=== PATIENT | female | born 1940 | race Caucasian/White ===

== ENCOUNTER 2018-07-16 07:08 | Inpatient (IN) ==
[2018-07-16] MEDS ORDERED: SODIUM CHLORIDE 0.9% 1,000 ML IV STA ×2 (07:42→09:06)
[2018-07-16] MEDS ORDERED: DILTIAZEM 25 MG/5 ML VIAL IV ONE (07:56)
[2018-07-16] MEDS ORDERED: DILTIAZEM 50 MG/10 ML VIAL IV STA (08:01)
[2018-07-16 08:35] LABS: Amorphous Crystals,Urine Occasional /HPF (Few); Apearance,Urine Slightly Hazy (Clear); Bilirubin,Urine Negative (Negative); Blood, Urine Small mg/dL (Negative); Glucose,Urine (UA) Negative (Negative); Hyaline Casts,Urine 7 /LPF (0-3); Ketones,Urine 5 mg/dL (Negative); Mucus,Urine Occasional /LPF (Occasional); Nitrite,Urine Negative (Negative); Protein,Urine Negative; RBC,Urine 1 /HPF (0-4); Squamous Epithelial Cell,Urine Occasional /HPF (0-10); Urine Color Yellow (Yellow); Urine Specific Gravity 1.018 (1.001-1.035); Urine Urobilinogen < 2.0 EU/DL (0.2-1.0); WBC,Urine 3 /HPF (0-6)
[2018-07-16 08:52] LABS: Albumin 2.2 G/DL (3.4-5.0); Bilirubin,Total 0.4 MG/DL (0.2-1.0); Calcium 8.7 MG/DL (8.5-10.1); Osmolality,Calculated 297.7 MOS/KG (273-304); Total Protein 7.3 G/DL (6.4-8.3)
[2018-07-16] MEDS ORDERED: POTASSIUM CHLORIDE 20 MEQ TABLET PO STA (09:18)
[2018-07-16 09:20] LABS: Basophils # 0.1 10*3/uL (0.0-0.2); Basophils % 0.6 % (0.0-0.8); Eosinophils # 0.1 10*3/uL (0.0-0.87); Eosinophils % 0.6 % (0.00-10.9); Hematocrit 39.9 VOL% (35.7-47.0); Hemoglobin 13.4 GM/DL (12.0-16.0); Immature Granulocytes % 4.4 %; Immature Granulocytes Absolute 0.64 #; Lymphocytes # 1.9 10*3/uL (1.4-4.0); Lymphocytes % 13.3 % (21.3-54.2); Mean Corpuscular HGB Conc 33.6 GM/DL (32-36); Mean Corpuscular Hemoglobin 31 PG (27-34); Mean Corpuscular Volume 91.9 FL (87-102); Mean Platelet Volume 14.4 FL (9.6-12.0); Monocytes # 0.9 10*3/uL (0.11-0.8); Monocytes % 5.9 % (1.7-12.7); Neutrophils # 10.9 10*3/uL (1.4-7.4); Neutrophils % 75.2 % (38.7-73.9); Platelet Count 119 T/CUMM (130-400); Red Blood Count 4.34 MC/CUMM (3.8-5.5); Red Cell Distribution Width 14.5 % (9.3-17.3); White Blood Count 14.4 T/CUMM (4-12)
[2018-07-16 09:29] LABS: Band Neutrophils 1 % (0-10); Hypochromasia Slight; Lymphocytes 11 % (20-55); Platelet Estimate Decreased; Segmented Neutrophils 80 % (50-85); Total Cells Counted 100
[2018-07-16] MEDS ORDERED: DIGOXIN 0.5 MG/2 ML AMP IV ONE ×2 (11:22→15:41)
[2018-07-16] MEDS ORDERED: ONDANSETRON 4 MG/2 ML VIAL IV PRN (11:56)
[2018-07-16] MEDS ORDERED: ENOXAPARIN 30 MG/0.3 ML SYRINGE SUBCUT SCH (11:56)
[2018-07-16] MEDS: SODIUM CHLORIDE 0.9% 1,000 ML IV SCH (12:27)
[2018-07-16] MEDS: dilTIAZem Drip 125 MG/125 ML PREMIX IV SCH (12:27)
[2018-07-16] MEDS: POTASSIUM CHLORIDE 20 MEQ TABLET PO SCH ×4 (12:28→21:42)
[2018-07-16] MEDS: APIXABAN 2.5 MG TABLET PO SCH ×2 (12:28→21:42)
[2018-07-16] MEDS: PANTOPRAZOLE 40 MG TABLET PO SCH (12:29)
[2018-07-16 13:17] LABS: Apearance,Urine Slightly Hazy (Clear); Bacteria,Urine Occasional /HPF (Few); Bilirubin,Urine Negative (Negative); Blood, Urine Small mg/dL (Negative); Glucose,Urine (UA) Negative (Negative); Ketones,Urine 5 mg/dL (Negative); Mucus,Urine Occasional /LPF (Occasional); Nitrite,Urine Negative (Negative); Protein,Urine 30 MG/DL; RBC,Urine <1 /HPF (0-4); Squamous Epithelial Cell,Urine Occasional /HPF (0-10); Urine Color Yellow (Yellow); Urine Specific Gravity 1.018 (1.001-1.035); Urine Urobilinogen < 2.0 EU/DL (0.2-1.0)
[2018-07-16 13:18] LABS: WBC,Urine 6 /HPF (0-6)
[2018-07-16] MEDS ORDERED: metroNIDAZOLE 250 MG TABLET PO ONE (14:44)
[2018-07-16] MEDS ORDERED: metroNIDAZOLE 250 MG TABLET PO SCH (15:00)
[2018-07-17] MEDS: SODIUM CHLORIDE 0.9% 1,000 ML IV SCH (02:00)
[2018-07-17 06:31] LABS: Risk Ratio 3.75; VLDL CHOLESTEROL 19.2 MG/DL
[2018-07-17 06:41] LABS: Basophils # 0.1 10*3/uL (0.0-0.2); Basophils % 0.5 % (0.0-0.8); Eosinophils # 0.1 10*3/uL (0.0-0.87); Eosinophils % 0.5 % (0.00-10.9); Hematocrit 43.7 VOL% (35.7-47.0); Hemoglobin 13.8 GM/DL (12.0-16.0); Immature Granulocytes % 3.8 %; Immature Granulocytes Absolute 0.49 #; Lymphocytes # 2.1 10*3/uL (1.4-4.0); Lymphocytes % 16.1 % (21.3-54.2); Mean Corpuscular HGB Conc 31.6 GM/DL (32-36); Mean Corpuscular Hemoglobin 31 PG (27-34); Mean Corpuscular Volume 96.9 FL (87-102); Monocytes # 0.4 10*3/uL (0.11-0.8); Monocytes % 3.4 % (1.7-12.7); Neutrophils # 9.6 10*3/uL (1.4-7.4); Neutrophils % 75.7 % (38.7-73.9); Platelet Count 119 T/CUMM (130-400); Red Blood Count 4.51 MC/CUMM (3.8-5.5); Red Cell Distribution Width 15.1 % (9.3-17.3); White Blood Count 12.7 T/CUMM (4-12)
[2018-07-17 06:50] LABS: Blood Urea Nitrogen 55 MG/DL (7-18); Calcium 8.4 MG/DL (8.5-10.1); Glucose 107 MG/DL (74-106); Osmolality,Calculated 297.1 MOS/KG (273-304); Potassium 4.3 MMOL/L (3.5-5.1); Sodium 142 MMOL/L (136-145)
[2018-07-17 06:56] LABS: Band Neutrophils 4 % (0-10); Hypochromasia 1+; Lymphocytes 7 % (20-55); Nucleated Red Blood Cells 1 (0-5); Platelet Estimate Decreased; Segmented Neutrophils 86 % (50-85); Total Cells Counted 100
[2018-07-17] MEDS: DILTIAZEM 30 MG TABLET PO SCH ×4 (09:07→21:04)
[2018-07-17] MEDS: PANTOPRAZOLE 40 MG TABLET PO SCH (09:07)
[2018-07-17] MEDS: APIXABAN 2.5 MG TABLET PO SCH ×2 (09:07→21:04)
[2018-07-17] MEDS: dilTIAZem Drip 125 MG/125 ML PREMIX IV SCH ×2 (11:23)
[2018-07-17] MEDS: ACETAMINOPHEN 325 MG TABLET PO PRN (11:54)
[2018-07-18] MEDS ORDERED: KETOROLAC 30 MG/1 ML VIAL IV ONE (02:04)
[2018-07-18 04:18] LABS: Basophils % 0.3 % (0.0-0.8); Eosinophils # 0.1 10*3/uL (0.0-0.87); Eosinophils % 0.9 % (0.00-10.9); Hematocrit 35.6 VOL% (35.7-47.0); Hemoglobin 11.5 GM/DL (12.0-16.0); Immature Granulocytes % 2.3 %; Immature Granulocytes Absolute 0.32 #; Lymphocytes # 1.5 10*3/uL (1.4-4.0); Lymphocytes % 10.3 % (21.3-54.2); Mean Corpuscular HGB Conc 32.3 GM/DL (32-36); Mean Corpuscular Hemoglobin 31 PG (27-34); Mean Corpuscular Volume 95.2 FL (87-102); Mean Platelet Volume 13.2 FL (9.6-12.0); Monocytes # 0.7 10*3/uL (0.11-0.8); Monocytes % 4.8 % (1.7-12.7); Neutrophils # 11.5 10*3/uL (1.4-7.4); Neutrophils % 81.4 % (38.7-73.9); Platelet Count 136 T/CUMM (130-400); Red Blood Count 3.74 MC/CUMM (3.8-5.5); Red Cell Distribution Width 15.4 % (9.3-17.3); White Blood Count 14.1 T/CUMM (4-12)
[2018-07-18 04:49] LABS: Calcium 8.5 MG/DL (8.5-10.1); Osmolality,Calculated 292.4 MOS/KG (273-304); Potassium 4.1 MMOL/L (3.5-5.1)
[2018-07-18 05:14] LABS: Platelet Estimate Decreased; Polychromasia Few
[2018-07-18] MEDS ORDERED: DIGOXIN 0.25 MG TABLET PO ONE (07:04)
[2018-07-18] MEDS: METOPROLOL TARTRATE 25 MG TABLET PO SCH ×2 (08:26→22:06)
[2018-07-18] MEDS: DILTIAZEM 30 MG TABLET PO SCH ×4 (08:26→22:06)
[2018-07-18] MEDS: APIXABAN 2.5 MG TABLET PO SCH (08:27)
[2018-07-18] MEDS: PANTOPRAZOLE 40 MG TABLET PO SCH (08:27)
[2018-07-18] MEDS ORDERED: AMIODARONE INJ 150 MG in DEXTROSE 5% 100 ML IV ONE (10:23)
[2018-07-18] MEDS ORDERED: AMIODARONE INJ 450 MG in DEXTROSE 5% 241 ML IV SCH (10:30)
[2018-07-18] MEDS: ENOXAPARIN 100 MG/ML SYRINGE SUBCUT SCH ×2 (11:36→22:05)
[2018-07-18] MEDS: AMPICILLIN 500 MG CAPSULE PO SCH ×4 (13:13→22:09)
[2018-07-18] MEDS: NYSTATIN 500,000 UNIT/5 ML UDCUP SWISH/SWAL SCH ×3 (13:13→22:06)
[2018-07-18] MEDS: DIGOXIN 0.25 MG TABLET PO SCH (13:13)
[2018-07-18] MEDS: AMIODARONE INJ 450 MG in DEXTROSE 5% 241 ML IV SCH (22:07)
[2018-07-19 05:19] LABS: Osmolality,Calculated 288.7 MOS/KG (273-304); Potassium 4.8 MMOL/L (3.5-5.1)
[2018-07-19] MEDS: PANTOPRAZOLE 40 MG TABLET PO SCH (08:58)
[2018-07-19] MEDS: DILTIAZEM 30 MG TABLET PO SCH (08:58)
[2018-07-19] MEDS: AMIODARONE 200 MG TABLET PO SCH (08:58)
[2018-07-19] MEDS: NYSTATIN 500,000 UNIT/5 ML UDCUP SWISH/SWAL SCH ×2 (08:58→09:06)
[2018-07-19] MEDS: diphenhydrAMINE CAP 25 MG CAPSULE PO PRN (08:58)
[2018-07-19] MEDS: METOPROLOL TARTRATE 25 MG TABLET PO SCH ×2 (08:59→21:20)
[2018-07-19] MEDS: AMPICILLIN 500 MG CAPSULE PO SCH (09:04)
[2018-07-19] MEDS: AMIODARONE INJ 450 MG in DEXTROSE 5% 241 ML IV SCH (09:09)
[2018-07-19] MEDS: ENOXAPARIN 100 MG/ML SYRINGE SUBCUT SCH ×2 (10:33→21:40)
[2018-07-19] MEDS: LEVOFLOXACIN 500 MG TABLET PO SCH (11:31)
[2018-07-19] MEDS: DIGOXIN 0.25 MG TABLET PO SCH (13:31)
[2018-07-19] MEDS: DILTIAZEM 60 MG TABLET PO SCH ×3 (13:31→21:18)
[2018-07-19] MEDS: GENTAMICIN INJ 80 MG in PREMIX 1 EACH IV SCH (14:57)
[2018-07-20] MEDS ORDERED: methylPREDNISolone SOD SUC 125 MG/2 ML VIAL IV ONE (00:10)
[2018-07-20] MEDS ORDERED: FAMOTIDINE 20 MG/2 ML VIAL IV ONE (00:11)
[2018-07-20] MEDS: diphenhydrAMINE CAP 25 MG CAPSULE PO PRN ×2 (00:26→22:03)
[2018-07-20] MEDS: GENTAMICIN INJ 80 MG in PREMIX 1 EACH IV SCH (00:50)
[2018-07-20 04:48] LABS: Basophils # 0.1 10*3/uL (0.0-0.2); Basophils % 0.4 % (0.0-0.8); Eosinophils % 0.2 % (0.00-10.9); Hematocrit 38.8 VOL% (35.7-47.0); Hemoglobin 12.1 GM/DL (12.0-16.0); Immature Granulocytes % 1.1 %; Immature Granulocytes Absolute 0.12 #; Lymphocytes # 1.3 10*3/uL (1.4-4.0); Lymphocytes % 11.8 % (21.3-54.2); Mean Corpuscular HGB Conc 31.2 GM/DL (32-36); Mean Corpuscular Hemoglobin 30 PG (27-34); Mean Corpuscular Volume 97.2 FL (87-102); Mean Platelet Volume 13.8 FL (9.6-12.0); Monocytes # 0.3 10*3/uL (0.11-0.8); Monocytes % 2.3 % (1.7-12.7); Neutrophils # 9.4 10*3/uL (1.4-7.4); Neutrophils % 84.2 % (38.7-73.9); Platelet Count 155 T/CUMM (130-400); Red Blood Count 3.99 MC/CUMM (3.8-5.5); Red Cell Distribution Width 15.5 % (9.3-17.3); White Blood Count 11.2 T/CUMM (4-12)
[2018-07-20 05:03] LABS: Calcium 8.5 MG/DL (8.5-10.1); Osmolality,Calculated 289.4 MOS/KG (273-304); Potassium 4.7 MMOL/L (3.5-5.1)
[2018-07-20 05:21] LABS: Lymphocytes 5 % (20-55); Segmented Neutrophils 93 % (50-85); Total Cells Counted 100
[2018-07-20 05:22] LABS: Hypochromasia 1+; Platelet Estimate Adequate
[2018-07-20] MEDS: DILTIAZEM 60 MG TABLET PO SCH ×4 (09:14→22:01)
[2018-07-20] MEDS: ENOXAPARIN 100 MG/ML SYRINGE SUBCUT SCH ×3 (09:14→22:02)
[2018-07-20] MEDS: AMIODARONE 200 MG TABLET PO SCH (09:15)
[2018-07-20] MEDS: METOPROLOL TARTRATE 25 MG TABLET PO SCH ×2 (09:15→22:02)
[2018-07-20] MEDS: PANTOPRAZOLE 40 MG TABLET PO SCH (09:15)
[2018-07-20] MEDS: LEVOFLOXACIN 500 MG TABLET PO SCH (10:56)
[2018-07-20] MEDS: DIGOXIN 0.25 MG TABLET PO SCH (12:15)
[2018-07-20] MEDS: BENZONATATE 100 MG CAPSULE PO SCH ×2 (14:54→22:01)
[2018-07-20] MEDS: OLANZapine 2.5 MG TABLET PO SCH (17:39)
[2018-07-21 04:04] LABS: Basophils % 0.1 % (0.0-0.8); Hematocrit 35.3 VOL% (35.7-47.0); Hemoglobin 11.3 GM/DL (12.0-16.0); Immature Granulocytes % 0.9 %; Immature Granulocytes Absolute 0.08 #; Lymphocytes # 1.9 10*3/uL (1.4-4.0); Lymphocytes % 20.8 % (21.3-54.2); Mean Corpuscular Hemoglobin 31 PG (27-34); Mean Corpuscular Volume 95.4 FL (87-102); Mean Platelet Volume 11.6 FL (9.6-12.0); Monocytes # 0.4 10*3/uL (0.11-0.8); Monocytes % 4.7 % (1.7-12.7); Neutrophils # 6.6 10*3/uL (1.4-7.4); Neutrophils % 73.5 % (38.7-73.9); Platelet Count 222 T/CUMM (130-400); Red Cell Distribution Width 15.2 % (9.3-17.3)
[2018-07-21 04:20] LABS: Calcium 8.8 MG/DL (8.5-10.1); Potassium 4.5 MMOL/L (3.5-5.1)
[2018-07-21 04:25] LABS: Platelet Estimate Normal
[2018-07-21 04:26] LABS: Hypochromasia 1+; Polychromasia Few
[2018-07-21] MEDS ORDERED: SODIUM CHLORIDE 0.9% 1,000 ML IV SCH ×3 (06:00→13:00)
[2018-07-21] MEDS ORDERED: POTASSIUM CHLORIDE RIDER 10 MEQ in PREMIX 1 EACH IV PRN (06:00)
[2018-07-21] MEDS ORDERED: MAGNESIUM SULF RIDER 2 GM in PREMIX 1 EACH IV PRN (06:00)
[2018-07-21] MEDS ORDERED: DIAZEPAM 5 MG TABLET PO ONE (06:00)
[2018-07-21] MEDS ORDERED: diphenhydrAMINE CAP 25 MG CAPSULE PO ONE (06:00)
[2018-07-21] MEDS: LEVOFLOXACIN 500 MG TABLET PO SCH ×2 (09:02→10:05)
[2018-07-21] MEDS: DILTIAZEM 60 MG TABLET PO SCH ×5 (09:02→22:10)
[2018-07-21] MEDS: OLANZapine 2.5 MG TABLET PO SCH (09:02)
[2018-07-21] MEDS: METOPROLOL TARTRATE 25 MG TABLET PO SCH ×3 (09:02→22:10)
[2018-07-21] MEDS: AMIODARONE 200 MG TABLET PO SCH (09:03)
[2018-07-21] MEDS: PANTOPRAZOLE 40 MG TABLET PO SCH (09:03)
[2018-07-21] MEDS: BENZONATATE 100 MG CAPSULE PO SCH ×4 (09:03→22:09)
[2018-07-21] MEDS ORDERED: MIDAZOLAM 2 MG/2 ML VIAL ONE (11:59)
[2018-07-21] MEDS ORDERED: LIDOCAINE 1% 20 ML VIAL ONE ×2 (11:59→12:09)
[2018-07-21] MEDS ORDERED: PROMETHAZINE 25 MG/1 ML VIAL ONE (11:59)
[2018-07-21] MEDS: DIGOXIN 0.25 MG TABLET PO SCH (14:00)
[2018-07-21] MEDS: ATORVASTATIN 10 MG TABLET PO SCH ×2 (22:09)
[2018-07-22 05:03] LABS: Basophils % 0.1 % (0.0-0.8); Eosinophils % 0.3 % (0.00-10.9); Hematocrit 33.4 VOL% (35.7-47.0); Hemoglobin 10.6 GM/DL (12.0-16.0); Immature Granulocytes % 0.6 %; Immature Granulocytes Absolute 0.05 #; Lymphocytes # 1.2 10*3/uL (1.4-4.0); Lymphocytes % 15.2 % (21.3-54.2); Mean Corpuscular HGB Conc 31.7 GM/DL (32-36); Mean Corpuscular Hemoglobin 31 PG (27-34); Mean Corpuscular Volume 96.3 FL (87-102); Mean Platelet Volume 12.3 FL (9.6-12.0); Monocytes # 0.4 10*3/uL (0.11-0.8); Monocytes % 4.6 % (1.7-12.7); Neutrophils # 6.1 10*3/uL (1.4-7.4); Neutrophils % 79.2 % (38.7-73.9); Platelet Count 190 T/CUMM (130-400); Red Blood Count 3.47 MC/CUMM (3.8-5.5); Red Cell Distribution Width 15.5 % (9.3-17.3); White Blood Count 7.8 T/CUMM (4-12)
[2018-07-22 05:12] LABS: Osmolality,Calculated 291.7 MOS/KG (273-304); Potassium 4.2 MMOL/L (3.5-5.1)
[2018-07-22 05:14] LABS: Calcium 8.2 MG/DL (8.5-10.1); Osmolality,Calculated 290.8 MOS/KG (273-304); Potassium 4.1 MMOL/L (3.5-5.1)
[2018-07-22] MEDS: diphenhydrAMINE CAP 25 MG CAPSULE PO PRN ×2 (05:15→21:05)
[2018-07-22] MEDS: ACETAMINOPHEN 325 MG TABLET PO PRN (05:15)
[2018-07-22 05:35] LABS: Lymphocytes 4 % (20-55); Segmented Neutrophils 95 % (50-85); Total Cells Counted 100
[2018-07-22 05:36] LABS: Hypochromasia Slight; Platelet Estimate Adequate
[2018-07-22] MEDS: ENOXAPARIN 40 MG/0.4 ML SYRINGE SUBCUT SCH (06:53)
[2018-07-22] MEDS: METOPROLOL TARTRATE 25 MG TABLET PO SCH ×2 (08:25→21:07)
[2018-07-22] MEDS: OLANZapine 2.5 MG TABLET PO SCH (08:25)
[2018-07-22] MEDS: DILTIAZEM 60 MG TABLET PO SCH ×4 (08:25→21:06)
[2018-07-22] MEDS: AMIODARONE 200 MG TABLET PO SCH (08:25)
[2018-07-22] MEDS: BENZONATATE 100 MG CAPSULE PO SCH ×3 (08:25→21:06)
[2018-07-22] MEDS: ASPIRIN EC 81 MG TABLET PO SCH (08:25)
[2018-07-22] MEDS: PANTOPRAZOLE 40 MG TABLET PO SCH (08:26)
[2018-07-22] MEDS: LEVOFLOXACIN 500 MG TABLET PO SCH ×2 (08:26→10:00)
[2018-07-22] MEDS ORDERED: ALBUTEROL/IPRATROPIUM 3 ML NEB RESP TX PRN (11:00)
[2018-07-22] MEDS: ALBUTEROL/IPRATROPIUM 3 ML NEB RESP TX SCH ×2 (13:05→19:36)
[2018-07-22] MEDS: DIGOXIN 0.25 MG TABLET PO SCH (13:15)
[2018-07-22] MEDS: ATORVASTATIN 10 MG TABLET PO SCH (21:07)
[2018-07-23] MEDS: ALBUTEROL/IPRATROPIUM 3 ML NEB RESP TX SCH ×4 (02:41→20:31)
[2018-07-23] MEDS: ENOXAPARIN 40 MG/0.4 ML SYRINGE SUBCUT SCH (06:10)
[2018-07-23] MEDS: OLANZapine 2.5 MG TABLET PO SCH (10:29)
[2018-07-23] MEDS: PANTOPRAZOLE 40 MG TABLET PO SCH (10:29)
[2018-07-23] MEDS: LEVOFLOXACIN 500 MG TABLET PO SCH (10:29)
[2018-07-23] MEDS: BENZONATATE 100 MG CAPSULE PO SCH ×3 (10:29→20:22)
[2018-07-23] MEDS: AMIODARONE 200 MG TABLET PO SCH (10:30)
[2018-07-23] MEDS: ASPIRIN EC 81 MG TABLET PO SCH (10:30)
[2018-07-23] MEDS: diphenhydrAMINE CAP 25 MG CAPSULE PO PRN ×2 (10:30→17:31)
[2018-07-23] MEDS: METOPROLOL TARTRATE 25 MG TABLET PO SCH ×2 (10:30→20:21)
[2018-07-23] MEDS: DILTIAZEM 60 MG TABLET PO SCH (10:31)
[2018-07-23] MEDS ORDERED: methylPREDNISolone SOD SUC 40 MG/1 ML VIAL IV ONE ×2 (11:30→18:38)
[2018-07-23] MEDS ORDERED: diphenhydrAMINE 50 MG/1 ML VIAL IV ONE (11:30)
[2018-07-23] MEDS: DIGOXIN 0.25 MG TABLET PO SCH (13:02)
[2018-07-23] MEDS: HYDROCORTISONE 1% CREAM 28 GM TUBE TOP PRN ×2 (15:11→21:35)
[2018-07-23] MEDS: ATORVASTATIN 10 MG TABLET PO SCH (20:22)
[2018-07-24] MEDS: diphenhydrAMINE CAP 25 MG CAPSULE PO PRN ×3 (00:14→16:36)
[2018-07-24] MEDS: ALBUTEROL/IPRATROPIUM 3 ML NEB RESP TX SCH ×4 (02:12→19:47)
[2018-07-24 04:03] LABS: Hematocrit 35.2 VOL% (35.7-47.0); Hemoglobin 11.1 GM/DL (12.0-16.0); Immature Granulocytes % 0.6 %; Immature Granulocytes Absolute 0.03 #; Lymphocytes # 0.8 10*3/uL (1.4-4.0); Lymphocytes % 15.7 % (21.3-54.2); Mean Corpuscular HGB Conc 31.5 GM/DL (32-36); Mean Corpuscular Hemoglobin 30 PG (27-34); Mean Corpuscular Volume 95.1 FL (87-102); Mean Platelet Volume 11.7 FL (9.6-12.0); Monocytes # 0.3 10*3/uL (0.11-0.8); Monocytes % 5.9 % (1.7-12.7); Neutrophils # 4.1 10*3/uL (1.4-7.4); Neutrophils % 77.8 % (38.7-73.9); Platelet Count 191 T/CUMM (130-400); Red Cell Distribution Width 15.1 % (9.3-17.3); White Blood Count 5.3 T/CUMM (4-12)
[2018-07-24 04:18] LABS: Calcium 7.9 MG/DL (8.5-10.1); Osmolality,Calculated 286.5 MOS/KG (273-304)
[2018-07-24 04:35] LABS: Hypochromasia 1+; Platelet Estimate Adequate
[2018-07-24] MEDS: ENOXAPARIN 40 MG/0.4 ML SYRINGE SUBCUT SCH (06:02)
[2018-07-24] MEDS: AMIODARONE 200 MG TABLET PO SCH (08:30)
[2018-07-24] MEDS: ASPIRIN EC 81 MG TABLET PO SCH (08:30)
[2018-07-24] MEDS: PANTOPRAZOLE 40 MG TABLET PO SCH (08:30)
[2018-07-24] MEDS: OLANZapine 2.5 MG TABLET PO SCH (08:30)
[2018-07-24] MEDS: METOPROLOL TARTRATE 25 MG TABLET PO SCH (08:30)
[2018-07-24] MEDS: BENZONATATE 100 MG CAPSULE PO SCH ×2 (08:30→16:36)
[2018-07-24] MEDS ORDERED: SODIUM PHOSPHATE ENEMA 133 ML BOTTLE RECTAL ONE (09:47)
[2018-07-24] MEDS ORDERED: BISACODYL 5 MG TABLET PO ONE (09:48)
[2018-07-24] MEDS: HYDROCORTISONE 1% CREAM 28 GM TUBE TOP PRN (10:25)
[2018-07-24] MEDS ORDERED: methylPREDNISolone SOD SUC 40 MG/1 ML VIAL IV ONE (12:07)
[2018-07-24] MEDS: DIGOXIN 0.25 MG TABLET PO SCH (13:10)
[2018-07-24] MEDS: MENTHOL/ZINC OXIDE OINT 71 GM JAR TOP PRN (13:10)
[2018-07-24] MEDS ORDERED: LORazepam 2 MG/1 ML VIAL IV PRN (18:25)
[2018-07-24] MEDS ORDERED: SOTALOL 80 MG TABLET PO SCH (21:00)
[2018-07-25] MEDS: ALBUTEROL/IPRATROPIUM 3 ML NEB RESP TX SCH ×3 (00:05→13:10)
[2018-07-25] MEDS: BENZONATATE 100 MG CAPSULE PO SCH ×2 (03:18→08:53)
[2018-07-25] MEDS: ATORVASTATIN 10 MG TABLET PO SCH (03:20)
[2018-07-25] MEDS: diphenhydrAMINE CAP 25 MG CAPSULE PO PRN (05:43)
[2018-07-25] MEDS: MENTHOL/ZINC OXIDE OINT 71 GM JAR TOP PRN (05:44)
[2018-07-25] MEDS: HYDROCORTISONE 1% CREAM 28 GM TUBE TOP PRN (05:44)
[2018-07-25] MEDS: ENOXAPARIN 40 MG/0.4 ML SYRINGE SUBCUT SCH (06:56)
[2018-07-25] MEDS: ASPIRIN EC 81 MG TABLET PO SCH (08:53)
[2018-07-25] MEDS: OLANZapine 2.5 MG TABLET PO SCH (08:53)
[2018-07-25] MEDS: PANTOPRAZOLE 40 MG TABLET PO SCH (08:53)
[2018-07-25] MEDS ORDERED: AMIODARONE 200 MG TABLET PO SCH (09:00)
[2018-07-25] MEDS ORDERED: predniSONE 20 MG TABLET PO SCH (09:00)
[2018-07-25] MEDS ORDERED: POLYETHYLENE GLYCOL POWDER 17 GM PACK PO SCH (09:00)
[2018-07-25] MEDS ORDERED: METOPROLOL SUCCINATE XL 25 MG TABLET PO SCH (10:30)
[2018-07-25 12:27] VITALS: BP 155/62
== END 2018-07-25 14:35 | disposition swing bed (61) | DRG 287 ==
LOC: EDBD → EDUNIT# → N.ED 07:08 → N.EDINP 10:13 → SUATTDRO 10:13 → N.CC 10:47 → N.TELES 07-17 13:27
PROVIDERS: ADMIT Internal Medicine; ATTEND Internal Medicine

== ENCOUNTER 2018-07-26 19:50 | Inpatient (IN) ==
[2018-07-26 20:54] LABS: Apearance,Urine CLEAR (Clear); Bilirubin,Urine Negative (Negative); Blood, Urine Negative (Negative); Glucose,Urine (UA) Negative (Negative); Hyaline Casts,Urine 1 /LPF (0-3); Ketones,Urine Negative (Negative); Mucus,Urine Occasional /LPF (Occasional); Nitrite,Urine Negative (Negative); Protein,Urine Negative; RBC,Urine 1 /HPF (0-4); Squamous Epithelial Cell,Urine Occasional /HPF (0-10); Urine Color Yellow (Yellow); Urine Specific Gravity 1.012 (1.001-1.035); Urine Urobilinogen < 2.0 EU/DL (0.2-1.0); WBC,Urine 1 /HPF (0-6)
[2018-07-26] MEDS ORDERED: ENOXAPARIN 30 MG/0.3 ML SYRINGE SUBCUT STA (21:14)
[2018-07-26] MEDS ORDERED: NITROGLYCERIN 2% OINT 1 INCH/GM PACK TOP STA (21:15)
[2018-07-26 21:20] LABS: Basophils % 0.2 % (0.0-0.8); Eosinophils % 0.7 % (0.00-10.9); Hemoglobin 12.3 GM/DL (12.0-16.0); Immature Granulocytes % 0.5 %; Immature Granulocytes Absolute 0.03 #; Lymphocytes # 1.6 10*3/uL (1.4-4.0); Lymphocytes % 27.5 % (21.3-54.2); Mean Corpuscular HGB Conc 32.4 GM/DL (32-36); Mean Corpuscular Hemoglobin 31 PG (27-34); Mean Corpuscular Volume 94.3 FL (87-102); Mean Platelet Volume 11.1 FL (9.6-12.0); Monocytes # 0.3 10*3/uL (0.11-0.8); Monocytes % 4.9 % (1.7-12.7); Neutrophils % 66.2 % (38.7-73.9); Platelet Count 230 T/CUMM (130-400); Red Blood Count 4.03 MC/CUMM (3.8-5.5); Red Cell Distribution Width 15.8 % (9.3-17.3)
[2018-07-26 21:39] LABS: Alanine Aminotransferase 22 U/L (13-56); Albumin 2.2 G/DL (3.4-5.0); Aspartate Amino Transferase 23 U/L (0-37); Blood Urea Nitrogen 24 MG/DL (7-18); Calcium 8.2 MG/DL (8.5-10.1); Glucose 105 MG/DL (74-106); Osmolality,Calculated 276.8 MOS/KG (273-304); Sodium 137 MMOL/L (136-145); Total Protein 7.4 G/DL (6.4-8.3)
[2018-07-26 21:45] LABS: Alkaline Phosphatase < 10 U/L (45-117)
[2018-07-26 21:59] LABS: Lymphocytes 17 % (20-55); Segmented Neutrophils 79 % (50-85)
[2018-07-26 22:01] LABS: Anisocytosis Slight; Platelet Estimate Normal
[2018-07-26 22:02] LABS: Hypochromasia Slight; Total Cells Counted 100
[2018-07-26] MEDS ORDERED: ONDANSETRON 4 MG/2 ML VIAL IV PRN (23:26)
[2018-07-26] MEDS ORDERED: diphenhydrAMINE CAP 25 MG CAPSULE PO PRN (23:36)
[2018-07-26] MEDS ORDERED: ASPIRIN EC 81 MG TABLET PO SCH (23:45)
[2018-07-27] MEDS: ALBUTEROL/IPRATROPIUM 3 ML NEB RESP TX SCH ×4 (00:02→20:17)
[2018-07-27] MEDS ORDERED: KETOROLAC 30 MG/1 ML VIAL IV STA ×2 (00:46→00:47)
[2018-07-27] MEDS ORDERED: ASPIRIN 325 MG TABLET ONE (01:05)
[2018-07-27] MEDS: NITROGLYCERIN 2% OINT 1 INCH/GM PACK TOP SCH ×4 (02:56→18:48)
[2018-07-27 05:50] LABS: Basophils % 0.3 % (0.0-0.8); Eosinophils # 0.3 10*3/uL (0.0-0.87); Eosinophils % 4.8 % (0.00-10.9); Hematocrit 36.2 VOL% (35.7-47.0); Hemoglobin 11.6 GM/DL (12.0-16.0); Immature Granulocytes % 0.4 %; Immature Granulocytes Absolute 0.03 #; Lymphocytes # 2.3 10*3/uL (1.4-4.0); Lymphocytes % 31.8 % (21.3-54.2); Mean Corpuscular Hemoglobin 30 PG (27-34); Mean Corpuscular Volume 93.8 FL (87-102); Mean Platelet Volume 11.3 FL (9.6-12.0); Monocytes # 0.4 10*3/uL (0.11-0.8); Monocytes % 6.1 % (1.7-12.7); Neutrophils % 56.6 % (38.7-73.9); Platelet Count 201 T/CUMM (130-400); Red Blood Count 3.86 MC/CUMM (3.8-5.5); Red Cell Distribution Width 15.6 % (9.3-17.3); White Blood Count 7.1 T/CUMM (4-12)
[2018-07-27 06:19] LABS: Platelet Estimate Normal
[2018-07-27 06:20] LABS: Anisocytosis Slight
[2018-07-27] MEDS: predniSONE 20 MG TABLET PO SCH (14:44)
[2018-07-27] MEDS: METOPROLOL SUCCINATE XL 25 MG TABLET PO SCH (14:44)
[2018-07-27] MEDS: OLANZapine 2.5 MG TABLET PO SCH (14:44)
[2018-07-27] MEDS: PANTOPRAZOLE 40 MG TABLET PO SCH (14:44)
[2018-07-27] MEDS: LORazepam 0.5 MG TABLET PO PRN (14:44)
[2018-07-27] MEDS: AMIODARONE 200 MG TABLET PO SCH (14:44)
[2018-07-27] MEDS: ENOXAPARIN 80 MG/0.8 ML SYRINGE SUBCUT SCH ×2 (14:45→22:12)
[2018-07-27] MEDS: ACETAMINOPHEN 325 MG TABLET PO PRN (18:39)
[2018-07-27] MEDS: ATORVASTATIN 10 MG TABLET PO SCH (22:12)
[2018-07-28] MEDS: NITROGLYCERIN 2% OINT 1 INCH/GM PACK TOP SCH ×3 (01:14→12:30)
[2018-07-28] MEDS: ALBUTEROL/IPRATROPIUM 3 ML NEB RESP TX SCH ×4 (01:33→19:50)
[2018-07-28 04:53] LABS: Basophils % 0.3 % (0.0-0.8); Eosinophils # 0.1 10*3/uL (0.0-0.87); Eosinophils % 2.2 % (0.00-10.9); Hematocrit 35.6 VOL% (35.7-47.0); Hemoglobin 11.6 GM/DL (12.0-16.0); Immature Granulocytes % 0.5 %; Immature Granulocytes Absolute 0.03 #; Lymphocytes % 31.2 % (21.3-54.2); Mean Corpuscular HGB Conc 32.6 GM/DL (32-36); Mean Corpuscular Hemoglobin 30 PG (27-34); Mean Platelet Volume 11.2 FL (9.6-12.0); Monocytes # 0.4 10*3/uL (0.11-0.8); Monocytes % 6.5 % (1.7-12.7); Neutrophils # 3.9 10*3/uL (1.4-7.4); Neutrophils % 59.3 % (38.7-73.9); Platelet Count 216 T/CUMM (130-400); Red Blood Count 3.83 MC/CUMM (3.8-5.5); Red Cell Distribution Width 15.5 % (9.3-17.3); White Blood Count 6.5 T/CUMM (4-12)
[2018-07-28 05:14] LABS: Hypochromasia 1+; Platelet Estimate Adequate
[2018-07-28 05:22] LABS: Calcium 8.1 MG/DL (8.5-10.1); Osmolality,Calculated 287.3 MOS/KG (273-304); Potassium 3.5 MMOL/L (3.5-5.1)
[2018-07-28] MEDS: METOPROLOL SUCCINATE XL 25 MG TABLET PO SCH (08:39)
[2018-07-28] MEDS: predniSONE 20 MG TABLET PO SCH (08:40)
[2018-07-28] MEDS: PANTOPRAZOLE 40 MG TABLET PO SCH (08:40)
[2018-07-28] MEDS: OLANZapine 2.5 MG TABLET PO SCH (08:40)
[2018-07-28] MEDS: AMIODARONE 200 MG TABLET PO SCH (08:40)
[2018-07-28] MEDS: ENOXAPARIN 80 MG/0.8 ML SYRINGE SUBCUT SCH (08:41)
[2018-07-28] MEDS ORDERED: POTASSIUM CHLORIDE 10 MEQ TABLET PO ONE (12:56)
[2018-07-28] MEDS: ISOSORBIDE MONONITRATE 30 MG TABLET PO SCH (13:31)
[2018-07-28] MEDS: ACETAMINOPHEN 325 MG TABLET PO PRN (16:56)
[2018-07-28] MEDS ORDERED: ENOXAPARIN 40 MG/0.4 ML SYRINGE SUBCUT SCH (21:00)
[2018-07-28] MEDS: ATORVASTATIN 10 MG TABLET PO SCH (21:15)
[2018-07-28] MEDS: LORazepam 0.5 MG TABLET PO PRN (23:55)
[2018-07-29] MEDS: ALBUTEROL/IPRATROPIUM 3 ML NEB RESP TX SCH ×3 (01:15→14:30)
[2018-07-29 06:24] LABS: Basophils % 0.4 % (0.0-0.8); Eosinophils # 0.5 10*3/uL (0.0-0.87); Eosinophils % 5.7 % (0.00-10.9); Hematocrit 36.8 VOL% (35.7-47.0); Hemoglobin 11.8 GM/DL (12.0-16.0); Immature Granulocytes % 0.4 %; Immature Granulocytes Absolute 0.03 #; Lymphocytes # 2.4 10*3/uL (1.4-4.0); Lymphocytes % 29.3 % (21.3-54.2); Mean Corpuscular HGB Conc 32.1 GM/DL (32-36); Mean Corpuscular Hemoglobin 30 PG (27-34); Mean Corpuscular Volume 94.6 FL (87-102); Mean Platelet Volume 10.3 FL (9.6-12.0); Monocytes # 0.6 10*3/uL (0.11-0.8); Monocytes % 7.2 % (1.7-12.7); Neutrophils # 4.7 10*3/uL (1.4-7.4); Platelet Count 246 T/CUMM (130-400); Red Blood Count 3.89 MC/CUMM (3.8-5.5); Red Cell Distribution Width 15.6 % (9.3-17.3); White Blood Count 8.3 T/CUMM (4-12)
[2018-07-29 06:34] LABS: Calcium 8.3 MG/DL (8.5-10.1); Osmolality,Calculated 282.5 MOS/KG (273-304); Potassium 3.5 MMOL/L (3.5-5.1)
[2018-07-29 06:43] LABS: Eosinophils 3 % (0-10); Lymphocytes 15 % (20-55); Platelet Estimate Adequate; Polychromasia Few; Segmented Neutrophils 80 % (50-85); Total Cells Counted 100
[2018-07-29] MEDS: METOPROLOL SUCCINATE XL 25 MG TABLET PO SCH (08:23)
[2018-07-29] MEDS: AMIODARONE 200 MG TABLET PO SCH (08:23)
[2018-07-29] MEDS: OLANZapine 2.5 MG TABLET PO SCH (08:23)
[2018-07-29] MEDS: ACETAMINOPHEN 325 MG TABLET PO PRN (08:24)
[2018-07-29] MEDS: ISOSORBIDE MONONITRATE 30 MG TABLET PO SCH (08:25)
[2018-07-29] MEDS: PANTOPRAZOLE 40 MG TABLET PO SCH (08:25)
[2018-07-29] MEDS: predniSONE 20 MG TABLET PO SCH (08:25)
[2018-07-29] MEDS ORDERED: ASPIRIN EC 81 MG TABLET PO SCH (09:00)
[2018-07-29 11:59] VITALS: BP 132/48
[2018-07-29] MEDS ORDERED: POTASSIUM CHLORIDE 20 MEQ TABLET PO ONE (13:08)
== END 2018-07-29 15:20 | DRG 880 ==
LOC: EDUNIT# → N.ED 19:50 → N.EDINP 23:26 → N.4E 07-27 01:19
PROVIDERS: ADMIT Internal Medicine; ATTEND Internal Medicine